=== PATIENT | male | born 1985 | race American Indian/Alaskan Native ===

== ENCOUNTER 2018-11-19 19:30 | Emergency (ER) | payer SELFPAY ==
[2018-11-19 19:44] VITALS: BP 119/65
== END 2018-11-19 22:00 | disposition left against medical advice (07) ==
LOC: ED 19:30
DX: H57.89 Other specified disorders of eye and adnexa (principal); Z53.21 Procedure and treatment not carried out due to patient leaving prior to being seen by health care provider